=== PATIENT | female | born 1945 | race African-American/Black ===

== ENCOUNTER → 2016-07-10 15:30 | Outpatient (CLI) | payer BC ==
[2015-07-10 13:54] VITALS: BMI 31.2
[~2016-07-10 15:30] MED LIST: ASPIRIN325 MG PO; BACTROBAN NASAL1 GM NASAL; BUMEX 1 MG TAB1 MG PO; CELEBREX200 MG PO; COLACE100 MG PO; DULCOLAX10 MG/SUPP RC; DULERA 200 MCG8.8 GM INH; ELIQUIS2.5 MG PO; FERROUS SULFAT325 MG PO; FORTAMET500 MG/BOT PO; GLUCOSAMINE & C1 CAP PO; HUMALOG 30100 UNITS/; HUMALOG 30100 UNITS/ SC; HYDROCHLOROTHIA25 MG PO; HYDROCODONE-APA1 TAB PO; HYZAAR 100-25 T1 TAB PO; K-DUR20 MEQ PO; LODINE300 MG PO; LODINE400 MG PO; LOMOTIL TABLET1 TAB PO; MAG-OXIDE400 MG PO; MICRO-K10 MEQ PO; MILK OF MAGNESI30 ML PO; MIRALAX17 GM PO; MIRAPEX0.125 MG PO; NEURONTIN600 MG PO; NEURONTIN800 MG PO; NORCO 10/325 TA1 TA1 PO; NORVASC5 MG PO; ONDANSETRON4 MG/2 M3 IV; OXYCONTIN20 MG PO; PERCOCET 10/3251 TA1 PO; PERCOCET 5/3251 TA1 PO; PRILOSEC20 MG PO; PROTONIX40 MG PO; PROVENTIL HFA6.7 GM INH; ROBAXIN-750750 MG PO; SENOKOT-S TABLE1 TAB PO; SINGULAIR5 MG PO; SLOW-MAG 64 MG64 MG PO; SPIRIVA18 MCG INH; XARELTO10 MG PO
== END | disposition home or self-care (01) ==
LOC: D.LABREF 15:30
DX: M17.12 Unilateral primary osteoarthritis, left knee (principal); Z11.8 Encounter for screening for other infectious and parasitic diseases

== ENCOUNTER 2016-07-16 08:30 | Inpatient (IN) | payer BC ==
[~2016-07-16] VITALS: Ht 185.4 cm; Wt 103.9 kg
[~2016-07-16 08:30] MED LIST changes: -ELIQUIS2.5 MG PO
[2016-07-16 09:02] LABS: BASOPHILS 0.4 % (0.0-2.0); EOSINOPHILS 2.5 % (0-7); HEMATOCRIT 40.8 % (36.0-48.0); HEMOGLOBIN 13.3 g/dL (12-16); IMMATURE GRANULOCYTES 0.2 % (0-5); LYMPHOCYTES 20.2 % (15-50); MCH 30.8 pg (26.0-34.0); MCHC 32.6 g/dL (31.0-37.0); MCV 94.4 fL (80.0-100.0); MEAN PLATELET VOLUME 10.4 fL (7.4-10.4); MONOCYTES 9.2 % (2-11); NEUTROPHILS 67.5 % (40-80); PLATELET COUNT 188 10x3/uL (130-400); RBC 4.32 10x6/uL (4.00-5.40); RDW 14.1 % (11.5-14.5); WBC 5.2 10x3/uL (4.8-10.8)
[2016-07-16 09:07] LABS: APTT 27.2 SECONDS (22.8-39.4); INR 0.97 (0.85-1.17); PROTIME 12.7 SECONDS (11.6-15.0)
[2016-07-16 09:08] LABS: CALC OSMOLALITY 281 mosm/kg (275-300); CARBON DIOXIDE 32.9 mmol/L (21.0-32.0); CHLORIDE - SERUM 102 mmol/L (98-107); CREATININE - SERUM 0.8 mg/dL (0.6-1.3); GLUCOSE 105 mg/dL (74-106); POTASSIUM - SERUM 4.1 mmol/L (3.5-5.1); SODIUM 141 mmol/L (136-145); UREA NITROGEN 14 mg/dL (7-18); eGFR NON AFRICAN AMERICAN 75 mL/min (90-120)
[2016-07-16 09:50] LABS: APPEARANCE HAZY (CLEAR); BILIRUBIN NEGATIVE (NEGATIVE); COLOR DK YELLOW (YELLOW); EPITHELIAL CELLS 0-5 /hpf (0-5); GLUCOSE NEGATIVE (NEGATIVE); KETONE NEGATIVE (NEGATIVE); LEUKOCYTE ESTERASE TRACE (NEGATIVE); NITRITE NEGATIVE (NEGATIVE); PH 5.5 (5.0-6.0); PROTEIN NEGATIVE (NEGATIVE); RED CELLS - URINE OCC /hpf (0-5); SPECIFIC GRAVITY 1.015 (1.005-1.020); WHITE CELLS - URINE RARE /hpf (0-5)
[2016-07-16 09:51] LABS: BACTERIA FEW /hpf (NONE SEEN); MUCUS >1+ /lpf (NONE SEEN)
[2016-07-21] VITALS (11 sets, daily range): BP systolic 132–186; BP diastolic 68–103; BMI 30.4; BMI 30.2
--- NOTE | 2016-07-21 12:36 | NUR ---
LEFT LEG AND FOOT WASHED WITH HIBICLENS AND ALCOHOL PRIOR TO CHLORPREP PER DN
--- NOTE | 2016-07-21 14:51 | NUR ---
PT RECIEVED AT 1400 FROM PACU PER BED. LEFT KNEE WRAPPED FROM MID THIGH TO TOES=ABLE TO MOVE TOES FREELY AND ARE WARM. STATES CANNOT FEEL HER LEG. LUNGS CLEAR BILAT. OXYGEN AT 3LNC. CALL LIGHT IN REACH. BED ALARM FOR SAFETY. SCDS ON BILAT
--- NOTE | 2016-07-21 18:20 | NUR ---
PT PLACED IN CPM MACHINE WITH FRESH ICE BAG TO KNEE. TOLERATING WITHOUT COMPLAINTS AT THIS TIME. BED ALARM ON FOR SAFETY
--- NOTE | 2016-07-21 19:40 | NUR ---
RECIEVED SHIFT REPORT. PT IS LYING IN BED. ALERT AND ORIENTED AND ORIENTED AND ABLE TO VERBALIZE NEEDS. IV IS PATENT AND FLUIDS ARE RUNNING PER ORDER. CPM MACHINE ON. SCD'S ON. DRESSING TO LEFT KNEE C/D/I. O2 @ 2 PER NASAL CANNULA. PT DENIES ANY PAIN AT THIS TIME. NO NEEDS ARE VERBALIZED AT THIS TIME. WILL CONTINUE TO MONITOR. SIDE RAILS ARE UP X 2. BED IS IN LOWEST POSITION. BED ALARM IS ON FOR SAFETY. CALL LIGHT IS WITHIN REACH.
--- NOTE | 2016-07-21 23:08 | NUR ---
SHIFT ASSESSMENT COMPLETED. NIGHT MEDS GIVEN WITH NO PROBLEMS. PT REFUSES SCHEDULED BUMEX AT THIS TIME. NO FURTHER NEEDS VOICED. WILL MONITOR. SIDE RAILS X 2. BED LOW. BED ALARM ON. CALL LIGHT IN REACH.
[2016-07-22 05:00] VITALS: BP 120/66
[2016-07-22 05:46] LABS: BASOPHILS 0.1 % (0.0-2.0); EOSINOPHILS 2.6 % (0-7); HEMATOCRIT 32.1 % (36.0-48.0); LYMPHOCYTES 6.8 % (15-50); MCHC 31.2 g/dL (31.0-37.0); MCV 96.4 fL (80.0-100.0); MEAN PLATELET VOLUME 10.8 fL (7.4-10.4); NEUTROPHILS 79.5 % (40-80); PLATELET COUNT 158 10x3/uL (130-400); RBC 3.33 10x6/uL (4.00-5.40); RDW 14.2 % (11.5-14.5); WBC 6.9 10x3/uL (4.8-10.8)
[2016-07-22 06:02] LABS: CALC OSMOLALITY 278 mosm/kg (275-300); CALCIUM 8.6 mg/dL (8.5-10.1); CARBON DIOXIDE 30.8 mmol/L (21.0-32.0); CHLORIDE - SERUM 102 mmol/L (98-107); CREATININE - SERUM 0.8 mg/dL (0.6-1.3); GLUCOSE 103 mg/dL (74-106); POTASSIUM - SERUM 4.2 mmol/L (3.5-5.1); SODIUM 139 mmol/L (136-145); UREA NITROGEN 15 mg/dL (7-18); eGFR NON AFRICAN AMERICAN 75 mL/min (90-120)
[2016-07-22 08:11] VITALS: BP 143/69
--- NOTE | 2016-07-22 08:27 | NUR ---
PT SEEN AND ASSESSED. NO PAIN AT PRESENT-VERY MILD BUT GOOD. LEFT LEG WRAPPED FROM MID THIGH TO TOES. TOES WARM AND PINK AND ABLE TO MOVE FREELY. CURRENTLY IN CPM MACHINE. ICE TO KNEE. SCDS ON BILAT. CALL LIGHT IN REACH. BED ALARM FOR SAFETY
--- NOTE | 2016-07-22 12:08 | NUR ---
* Is the patient Alert and Oriented? Yes 0 * How many steps to enter\exit or inside your home? 2 0 * PCP Dr. Blankenship 0 * Pharmacy [facility] 0 * Preadmission Environment Home with Family 0 * ADLs Independent 0 * Equipment Bedside Commode Cane Rolling Walker Wheelchair 0 * List name and contact numbers for known caregivers / representatives who currently or will assist patient after discharge: Sister - Phyllis [phone] Niece - Howie [phone] 0 * Additional services required to return to the preadmission environment? Yes 0 * Can the patient safely return to the preadmission environment? Yes 0 * Has this patient been hospitalized within the prior 30 days at any hospital? No 07/22/2016 12:08 DCP: Discharge Planning Patient Name: GRIS LEONARDO Admission Status: Elective Accout number: [id number] Admission Date: 07-21-2016 : 1945 Admission Diagnosis: Attending: SYDNEY Current LOS: 1 Anticipated DC Date: 07-23-2016 Planned Disposition: Outpatient PT\OT Primary Insurance: [employer] Discharge Planning Comments: CM met with patient to assess dc plans/needs. Patient state she lives at home with her who is currently at [facility] for chcf/rehab. At vt, she states her niece, Howie, will be staying with her. She has a walker, cane, BSC & WC at home. She has chosen [facility] for outpatient physical therapy. Appt. scheduled 07/24 @ 1300. Anticipate dc tomorrow afternoon. CM will follow. Stave Bolt Equalizer: Jennifer Orozco
[2016-07-22 12:13] VITALS: BP 159/60
[2016-07-22 13:05] VITALS: Ht 185.4 cm; Wt 103.9 kg
[2016-07-22 15:59] VITALS: BP 121/60
--- NOTE | 2016-07-22 18:42 | NUR ---
PT HAS NO COMPLAINTS AT PRESENT. CURRENTLY IN CPM MACHINE AND TOLERATING WITHOUT COMPLAINTS. BED ALARM ON FOR SAFETY. CALL LIGHT IN REACH
[2016-07-22 19:00] VITALS: BP 104/76
--- NOTE | 2016-07-22 19:25 | NUR ---
RECIEVED SHIFT REPORT. PT IS LYING IN BED. ALERT AND ORIENTED AND ABLE TO VERBALIZE NEEDS. IV IS PATENT AND SALINE LOC AT THIS TIME. CPM ON. SCD'S ON. PT WAS UP WITH PHYSICAL THERAPY TODAY. PT STATES PAIN IS 10/10. NO NEEDS ARE VERBALIZED AT THIS TIME. WILL CONTINUE TO MONITOR. SIDE RAILS ARE UP X 2. BED IS IN LOWEST POSITION. BED ALARM IS ON FOR SAFETY. CALL LIGHT IS WITHIN REACH.
--- NOTE | 2016-07-22 20:05 | NUR ---
AID CAME TO HAVE ME GO IN PT ROOM AT THIS TIME. UPON ARRIVAL THE LEG IN THE CPM LOOKED SIDEWAYS IF IT HAD SLIPPED. THERE WAS A MODERATE AMOUNT OF BLOOD ON PINK BED PAD AND BED. TOOK TAYLER WRAP OFF TO INSPECT AND IT APPEARS TO BE THE INSIDE OF THE AQUACEL IS SATURATED WITH BLOOD AND IT HAS OOZED OUT AROUND THE TOP SEAL. WILL GET NEW DRESSING AND APPLY. CPM MACHINE REMOVED.
--- NOTE | 2016-07-22 20:38 | NUR ---
SHIFT ASSESSMENT COMPLETED. NIGHT MEDS GIVEN WITH NO PROBLEMS. PT REFUSED SCHEDULED BUMEX AT THIS TIME. OLD AQUACEL REMOVED AND ALL GARETH ARE INTACT AND THERE IS SCANT BLOOD COMING OUT OF INCISION. AQUACEL DRESSING IS INDEED SAURATED WITH BLOOD. AREA CLEANED UP AND NEW AQUACEL APPLIED WITH 4X4'S ON TOP AND NEW TAYLER WRAPS. PT TOLERATED WELL. WILL MONITOR. SIDE RAILS X 2. BED LOW. BED ALARM ON. CALL LIGHT IN REACH.
[2016-07-23 05:18] LABS: HEMATOCRIT 31.5 % (36.0-48.0); HEMOGLOBIN 9.8 g/dL (12-16); MCH 29.8 pg (26.0-34.0); MCHC 31.1 g/dL (31.0-37.0); MCV 95.7 fL (80.0-100.0); MEAN PLATELET VOLUME 10.8 fL (7.4-10.4); RBC 3.29 10x6/uL (4.00-5.40); RDW 14.2 % (11.5-14.5); WBC 6.6 10x3/uL (4.8-10.8)
--- NOTE | 2016-07-23 06:47 | CN ---
PATIENT NAME:GRIS LEONARDO MEDICAL RECORD: [id number] : 43 LOCATION:D.[facility] ADMIT DATE: 07/21/16 ACCOUNT: [id number] CONSULTING PHYSICIAN: GARCIA MILLAN MD REFERRING PHYSICIAN: DAPHNE FOUNTAIN MD DATE OF CONSULTATION: 07/21/2016 Consultation note DATE OF ADMISSION: 07/21/2016. REASON FOR CONSULTATION: Medical management. HISTORY OF PRESENT ILLNESS: The patient is a 70-year-old female with end-stage DJD of the knees. The patient had been referred to Dr. Fountain who had suggested the patient to undergo a total left knee replacement. PAST MEDICAL HISTORY: Significant that she has had bilateral hip replacement. She has had thyroid nodule, borderline diabetes mellitus, and carpal tunnel syndrome. She has also had a hysterectomy, right hip fracture, arthritis, hypertension, low back pain, and dependent edema. She has had a history of anemia. MEDICATIONS: Include aspirin 325 mg once a day, Bumex 1 mg 1 p.o. every day, Dulera 200/5 mcg 2 puffs every day, Lodine ER 400 mg 2 tablets once a day, ferrous sulfate 325 one p.o. b.i.d., gabapentin 600 mg 2 tabs p.o. t.i.d., hydrochlorothiazide 25 one p.o. every day, KCl 20 mEq b.i.d., losartan 100 mg once a day, Magnesium oxide 400 mg twice a day, Metformin 500 mg twice a day, Protonix 40 mg once a day, Mirapex 0.0125 one p.o. every day, Proventil HFA 90 mcg 2 puffs q.4 hours p.r.n. shortness of breath, and Spiriva with HandiHaler b.i.d. ALLERGIES: CODEINE AND PENICILLIN. SOCIAL HISTORY: She was born in [place] and moved to [place] in 1965. She has worked for over 30+ years. Educated through the 12th grade. She is and has no children. HABITS: None. REVIEW OF SYSTEMS: CONSTITUTIONAL: She denies any headaches, seizure or syncope. She denies change in visual or auditory acuity. PULMONARY: She denies any shortness of breath, cough, congestion, history of asthma or bronchitis. CARDIOVASCULAR: She has had no chest pain or palpitation, PND, or orthopnea. GASTROINTESTINAL: No chronic nausea, vomiting, melena, hematochezia, urgency, frequency or dysuria mucosa. MUSCULOSKELETAL: The patient does report having pain bilaterally in both knees at the current time. She has an epidural in place. She is experiencing no pain. PHYSICAL EXAMINATION: GENERAL: She is alert. She is oriented times 3. VITAL SIGNS: Her temperature is 97, blood pressure 140/77, pulse 71, CONSULT REPORT [id number] GRIS LEONARDO DONNA respirations 18. HEENT: Head is normocephalic. No lesions. Ears: TMs clear. Eyes: Pupils equal, round and reactive to light. Her extraocular movements are intact. Her nasal cavity, oral cavity and oropharynx clear. NECK: Supple. There is no adenopathy. HEART: Has regular rhythm. No murmurs, gallops or rubs. LUNGS: Clear. ABDOMEN: Soft, bowel sounds positive. No organomegaly. GENITAL AND RECTAL: Deferred. EXTREMITIES: The patient is status post total left knee replacement. She has pressure dressing in place. No active bleeding is noted. She has 2+ dorsalis pedis, posterior tibial pulses. LABORATORY DATA: Preoperatively on the , the patient's white count was 5.2, hemoglobin 13.3, hematocrit 40.8 and her platelets were 188. She had sodium of 141, potassium 4.1, chloride 102, CO2 was 32.9. BUN is 14, creatinine 0.8. The patient had a urinalysis, which was unremarkable. She also had an INR of 0.97. ASSESSMENT: Status post total left knee replacement, history of bilateral hip replacement, history of hypertension, diabetes mellitus, history of asthma, and anemia. PLAN: We will follow the patient along with you and continue all her current medications. Repeat CBC as well as BMP in a.m. TRANSINT:[id number] Voice Confirmation ID: [id number] DOCUMENT ID: [id number] GARCIA MILLAN MD at 0647 CC: [id number] DICTATION DATE: 07/21/161730 MANAGER INSTALLATION: 07/21/162046 [place] [address]
--- NOTE | 2016-07-23 07:00 | NUR ---
REPORT RECIEVED ASSUMED CARE. PATIENT IN BED WITH NO COMPLAINTS AT THIS TIME. IV INTACT. CPM ON. CALL LIGHT WITHIN REACH.
[2016-07-23 07:59] VITALS: BP 147/76
[2016-07-23] MEDS ORDERED: ELIQUIS2.5 MG PO (08:13)
[2016-07-23] MEDS ORDERED: PERCOCET 10/3251 TA1 PO (08:14)
--- NOTE | 2016-07-23 08:25 | OP ---
PATIENT NAME: GRIS LEONARDO MEDICAL RECORD: [id number] :[birth year] LOCATION:D.[facility] ADMISSION DATE:07/21/16 SURGEON: DAPHNE FOUNTAIN MD DATE OF OPERATION: 07/21/2016 PREOPERATIVE DIAGNOSIS: Left knee degenerative joint disease. POSTOPERATIVE DIAGNOSIS: Left knee degenerative joint disease. PROCEDURE PERFORMED: Left knee replacement using Biomet with a posterior stabilized system. SURGEON: Manoj Fountain MD ANESTHESIA: General with a block for postop pain. CONDITION: She tolerated the procedure well, was transferred to the recovery room in stable condition at termination of procedure. TOURNIQUET TIME: 48 minutes. ESTIMATED BLOOD LOSS: Minimal. INDICATIONS: This is a very pleasant 70-year-old female with advanced degenerative changes of her knee. This has been going on for some time. She presents for a total knee replacement. We did discuss risks, benefits, alternatives of this. She understood and wished to proceed. OPERATIVE REPORT: The patient was taken to the operating room, placed in a supine position. General anesthesia was obtained. She did have the block placed in the preop holding area. In the operating room, she was prepped and draped in the normal fashion. Following which, she had a secondary ChloraPrep and Ioban dressing placement. She then had exsanguination with an Jalen wrap and elevation of the tourniquet to 350. She had midline incision followed by a medial parapatellar incision. This was followed by everting the patella, taking out the fat pad and elevating some soft tissue medially. I then proceeded to drill into the femur, placed a guide, and made a distal femoral cut. The femur was measured at a 67.5. I did do the rest of the distal femoral cuts for a 67.5. Following which, I made a box cut for posterior stabilized knee. I then subluxed the tibia forward, placed the tibial guide and made a proximal tibial cut. This was sized at a 75. Therefore, I placed a 67.5 femur with a 75 tibia marked rotation. Following which, I punch for the tibia. I also took off the back side of the patella, which was significantly deformed. I then flattened up the patella, measured this for a 34, drilled the 3 peg holes and then trialed all 3 components, they fit well. I therefore took everything out, copiously irrigated then cemented into place a 67.5 posterior stabilized knee with a 75 tibia and a 34 three-peg hole patellar button. I then proceeded to place a 12 poly while the cement dried. Once this was accomplished, it felt like a 14 would still work, so I placed the final 14 poly. She was copiously irrigated, then closed with the #1 barbed PDS then with 2-0 Vicryl, then pieter, awakened and transferred to the recovery room in stable condition, having tolerated procedure well. TRANSINT:[id number] Voice Confirmation ID: [id number] DOCUMENT ID: [id number] OPERATIVE REPORT [id number] GRIS LEONARDO, DAPHNE GANDHI MD at 0825 CC: [id number] DICTATION DATE: 07/21/16 1436 BISCUIT PACKER: 07/21/16 1456 ADM IN [facility] [address] [id number]
--- NOTE | 2016-07-23 08:45 | NUR ---
PATIENT UP WITH PT. NO PROBLEMS AT THIS TIME.
--- NOTE | 2016-07-23 13:30 | NUR ---
PATIENT RECIEVED DISCHARGE INSTRUCTIONS. VERBALIZED UNDERSTANDING. DRESSING CLEAN AND DRY. CHANGED LAST NIGHT. WILL GO HOME WITH THAT DRESSING ON. IV REMOVED WITH CATH TIP INTACT. PRESCRIPTION GIVEN TO PATIENT.
--- NOTE | 2016-07-23 13:30 | NUR ---
07/23/2016 13:29 DCP: Discharge Planning Patient Name: GRIS LEONARDO Encounter No: [id number] : 1945 Primary Insurance: BLUE CROSS TRUE BLUE PPO Anticipated DC Date: 07-23-2016 Planned Disposition: Outpatient PT\OT External Planned Provider: [facility] DCP follow-up note: DC order rec'd. Patient and family in agreement with discharge plan. No changes to plan. Jennifer Orozco
--- NOTE | 2016-07-29 07:00 | DS ---
PATIENT:GRIS LEONARDO :[birth year] MEDICAL RECORD: [id number] DISCHARGE SUMMARY ADMISSION DATE: 07/21/16 DISCHARGE DATE: 07/23/16 DATE OF ADMISSION: 07/21/2016. DATE OF DISCHARGE: 07/23/2016. ADMITTING DIAGNOSIS: Left knee degenerative joint disease. DISCHARGE DIAGNOSIS: Left knee degenerative joint disease. PROCEDURE PERFORMED DURING THE HOSPITALIZATION: A left total knee arthroplasty. HISTORY OF PRESENT ILLNESS: A very pleasant 70-year-old female with advanced degenerative changes of her left knee. She is no longer tolerating nonoperative treatments. She presented for a knee replacement. She has done quite well postoperatively. It is felt that she can be discharged to home and continue outpatient physical therapy. She is going to continue on post-total knee arthroplasty protocols. She is going to be taking Eliquis and Percocet for pain. She is to keep it clean and dry. She is going to see me back in about 2 weeks. She is going to call if she is having any problems and we will proceed from this juncture. DISCHARGE DIAGNOSES: 1. Left knee degenerative joint disease. 2. Postop acute blood loss anemia. TRANSINT:[id number] Voice Confirmation ID: [id number] DOCUMENT ID: [id number] DAPHNE FAITH MD at 0700 CC: [id number] DICTATION DATE: 07/23/16821 INSOLE DOUBLER: 07/23/16 0853 DIS IN 07/23/[id number] [place] [address]
== END 2016-07-23 15:02 | disposition home or self-care (01) | DRG 470 ==
LOC: D.SDCHOLD 07-21 06:09 → D.MS 07-21 06:09 → D.SDCHOLD 07-21 08:30 → D.MS 07-21 13:21
PROVIDERS: Family Medicine; ADMIT Orthopaedic Surgery Sports Medicine
PROC: 0SRD0J9 Replacement of Left Knee Joint with Synthetic Substitute, Cemented, Open Approach (ICD-10-PCS; principal; 2016-07-21 11:15)
DX: M17.12 Unilateral primary osteoarthritis, left knee (principal); D62 Acute posthemorrhagic anemia; E11.40 Type 2 diabetes mellitus with diabetic neuropathy, unspecified; Z79.84 Long term (current) use of oral hypoglycemic drugs; I10 Essential (primary) hypertension; J44.9 Chronic obstructive pulmonary disease, unspecified; J45.909 Unspecified asthma, uncomplicated; Z96.643 Presence of artificial hip joint, bilateral

== ENCOUNTER → 2016-10-26 19:01 | Outpatient (CLI) | payer BC ==
[2016-07-22 13:05] VITALS: BMI 30.2
[~2016-10-26 19:01] MED LIST changes: +ELIQUIS2.5 MG PO
[2016-10-26 19:33] LABS: HEMOGLOBIN A1C 6.3 % (4.8-6.0)
== END | disposition home or self-care (01) ==
LOC: D.LABREF 19:01
PROVIDERS: Orthopaedic Surgery Sports Medicine
DX: M17.11 Unilateral primary osteoarthritis, right knee (principal); Z11.8 Encounter for screening for other infectious and parasitic diseases

== ENCOUNTER 2016-11-24 06:45 | Inpatient (IN) | payer BC, MEDICARE ==
[2016-11-20 15:42] LABS: BASOPHILS 0.2 % (0-2); EOSINOPHILS 4.1 % (0-7); HEMATOCRIT 40.3 % (36.0-48.0); HEMOGLOBIN 12.7 g/dL (12-16); IMMATURE GRANULOCYTES 0.2 % (0-5); LYMPHOCYTES 21.9 % (15-50); MCH 29.4 pg (26.0-34.0); MCHC 31.5 g/dL (31.0-37.0); MCV 93.3 fL (80.0-100.0); MONOCYTES 9.9 % (2-11); NEUTROPHILS 63.7 % (40-80); RBC 4.32 10x6/uL (4.00-5.40); RDW 14.9 % (11.5-14.5); WBC 4.7 10x3/uL (4.8-10.8)
[2016-11-20 15:46] LABS: PLATELET COUNT 205 10x3/uL (130-400)
[2016-11-20 15:55] LABS: INR 0.94 (0.85-1.17); PROTIME 12.4 SECONDS (11.6-15.0)
[2016-11-20 15:57] LABS: ANION GAP 11.4 mmol/L (8-16); CALCIUM 9.9 mg/dL (8.5-10.1); CARBON DIOXIDE 30.7 mmol/L (21.0-32.0); CREATININE - SERUM 0.9 mg/dL (0.6-1.3); POTASSIUM - SERUM 4.1 mmol/L (3.5-5.1)
[2016-11-20 16:43] LABS: APPEARANCE CLEAR (CLEAR); BILIRUBIN NEGATIVE (NEGATIVE); COLOR YELLOW (YELLOW); GLUCOSE NEGATIVE (NEGATIVE); KETONE NEGATIVE (NEGATIVE); LEUKOCYTE ESTERASE NEGATIVE (NEGATIVE); NITRITE NEGATIVE (NEGATIVE); PROTEIN NEGATIVE (NEGATIVE); UROBILINOGEN NORMAL (NORMAL)
[2016-11-24] VITALS (9 sets, daily range): BP systolic 155–200; BP diastolic 65–97; BMI 30.4; BMI 28.4
[~2016-11-24] VITALS: Ht 185.4 cm; Wt 97.5 kg
[~2016-11-24 06:45] MED LIST changes: +BAYER CHEWABLE81 MG PO
[2016-11-24] MEDS ORDERED: COZAAR25 MG PO (07:32)
[2016-11-24] MEDS ORDERED: HYDROCODONE-APA1 TAB PO (07:34)
[2016-11-24] MEDS ORDERED: ZYRTEC10 MG PO (07:35)
[2016-11-24] MEDS ORDERED: MULTIPLE VITAMI1 TA1 PO (07:35)
--- NOTE | 2016-11-24 13:57 | NUR ---
PT REPORT REC'D FROM SARANYA ALLEN, IN RECOVERY. ROOM READY AND AWAITING PT ARRIVAL.
--- NOTE | 2016-11-24 14:00 | NUR ---
PT AOX4 RESP EVEN AND NONLABORED PT HERE FOR RIGHT KNEE SURGERY. PT DENIES NEEDS AT THIS TIME IV TO LEFT WRIST PATENT AND INTACT SRX2 BED AT LOWEST SETTING CALL LIGHT WITHIN REACH WILL CONTINUE TO MONITOR. PT HERE FOR IV ANTIBIOTICS AND PT
--- NOTE | 2016-11-24 14:22 | NUR ---
PT REC'D TO ROOM VIA BED. AAOX4. FAMILY AT BEDSIDE. DRESSING TO R KNEE CDI. +2 PEDAL PULSES BILAT. VSS. ADMISSION ASSESSMENT COMPLETE. PIV TO L WRIST FREE OF REDNESS AND SWELLING. IVF HUNG PER AUG. BED LOW, CALL LIGHT IN REACH, DENIES NEEDS. CPOC.
--- NOTE | 2016-11-24 15:24 | NUR ---
ASSISTED PT ONTO BED MANDEL. LARGE AMOUNT OF CLEAR YELLOW URINE VOIDED AT THIS TIME. REPOSITIONED UP IN BED. BED LOWERED, DENIES NEEDS, CPOC.
--- NOTE | 2016-11-24 18:25 | NUR ---
ASSISTED PT ONTO BED MANDEL. VOIDED LARGE AMOUNT OF CLEAR YELLOW URINE. [facility] PROVIDED. CPM ON AT THIS TIME.
--- NOTE | 2016-11-24 20:56 | NUR ---
PATIENT RESTING IN BED AND DENIES NEEDS AT THIS TIME. BED IN LOWEST POSITION AND CALL LIGHT WITHIN REACH. ENCOURAGED THE PATIENT TO CALL IF SHE HAS NEEDS.
--- NOTE | 2016-11-24 21:50 | NUR ---
REPOSITIONED PATIENT WITH NORMAN YOUNG. PATIENT REQUESTED SOMETHING TO HELP HER SLEEP. I PAGED DR. VALADEZ (APPIAN DEVELOPER FOR DR. PAZ) AND HE ORDERED ATIVAN 1MG IV Q2HPRN. ADMINISTERED MEDICATION PER ORDERS. PATIENT DENIES OTHER NEEDS AT THIS TIME. BED IS IN THE LOWEST POSITION, CALL LIGHT WITHIN REACH, AND BED ALARM IS ON. ENCOURAGED THE PATIENT TO CALL IF SHE HAS FURTHER NEEDS.
--- NOTE | 2016-11-24 22:56 | NUR ---
ADMINISTERED BOLUS DOSE FOR 8/10 PAIN.
[2016-11-25 04:00] VITALS: BP 178/77
[2016-11-25 05:22] LABS: HEMATOCRIT 37.2 % (36.0-48.0); HEMOGLOBIN 11.8 g/dL (12-16); MCH 29.5 pg (26.0-34.0); MCHC 31.7 g/dL (31.0-37.0); MEAN PLATELET VOLUME 10.2 fL (7.4-10.4); RDW 14.8 % (11.5-14.5); WBC 8.7 10x3/uL (4.8-10.8)
[2016-11-25 08:06] VITALS: BP 181/81
--- NOTE | 2016-11-25 08:09 | NUR ---
PT REC'D FROM SARANYA MUHAMMAD. RESTING IN BED WITH CPM TO R LEG. DRESSING TO R KNEE CDI. RATING CURRENT PAIN IN R KNEE 03/07. REMINDED PT OF ON SITE COORDINATOR AND HOW TO USE. ASSISTED PT ONTO BED MANDEL. VOIDED SMALL AMOUNT OF CLEAR YELLOW URINE. BED LOW, CALL LIGHT IN REACH, BREAKFAST TRAY AT BEDSIDE. CPOC.
--- NOTE | 2016-11-25 08:21 | NUR ---
PT RESTING IN BED WITH HOB AT 30DEGREES, CPM IN USE. PT COMPLAINS OF PAIN OF A 9 ON A SCALE OF 1-10, IT BUSINESS SYSTEMS ANALYST IN USE, STATES PAIN IS AT A TOLERABLE LEVEL. CPM FUNCTIONING PROPERLY. BED IN LOW POSITION AND CALL LIGHT WITHIN REACH. WILL CONTINUE TO MONITOR.
--- NOTE | 2016-11-25 10:24 | NUR ---
Patient Name: GRIS LEONARDO Admission Status: Elective Accout number: [id number] Admission Date: 11-24-2016 : 1945 Admission Diagnosis: Attending: KEILA Current LOS: 1 Anticipated DC Date: Planned Disposition: Home Primary Insurance: BLUE CROSS TRUE BLUE PPO Discharge Planning Comments: CM NOTE: CM met with patient to assess discharge planning/needs. Patient lives home alone but has multiple family members who live across the street. She states that she has a walker, bed side commode and elevated toilet seat at home. One of her family members will be driving her home. She denies any steps or stairs in her home and says her home is safe to return to. Patient states she plans to go to [facility] where she has gone in the past. She was very happy with them and would like to use them again. Called [facility] medical to verify the patient was set up with supplies and stated that they would deliver the CPM machine to house once she is discharged. CM will continue to follow and assist as needed with discharge planning/needs. PCP: Monty Pharmacy: [facility] ([place]) [phone] [place] ([place]) [phone] DME: [facility] mfts: Viky Elliott * Is the patient Alert and Oriented? Yes 0 * How many steps to enter\exit or inside your home? 0 0 * PCP [facility] 0 * [facility] * Preadmission Environment Home Alone 0 * ADLs Independent 0 * Equipment Bedside Commode Elevated [place] Seat Walker 0 * List name and contact numbers for known caregivers / representatives who currently or will assist patient after discharge: [place] () [place] ([place]) 0 * Community resources currently utilized Other 0 * Please name any agencies selected above. [facility] 0 * Additional services required to return to the preadmission environment? Yes 0 * Can the patient safely return to the preadmission environment? Yes 0 * Has this patient been hospitalized within the prior 30 days at any hospital? No 0 Grand Total: 0
[2016-11-25 12:48] VITALS: BP 169/82
[2016-11-25 14:04] VITALS: Ht 185.4 cm; Wt 97.5 kg
[2016-11-25 16:02] VITALS: BP 187/77
--- NOTE | 2016-11-25 16:39 | NUR ---
IV RESITED BY SARANYA BECK. DILAUDGIA FORM SETTER SUPERVISOR DC'D. EXPLAINED TO PT THAT SHE HAS PO PAIN MEDICATION THAT SHE CAN TAKE IF SHE NEEDS IT. PT STATES SHE UNDERSTANDS AND HAS NO QUESTIONS. BED LOW, CALL LIGHT IN REACH, VISITORS AT BEDSIDE, DENIES NEEDS. CPOC.
--- NOTE | 2016-11-25 19:36 | NUR ---
PATIENT RESTING IN BED AND DENIES NEEDS AT THIS TIME. BED IN LOWEST POSITION, CALL LIGHT WITHIN REACH, AND BED ALARM ON. ENCOURAGED THE PATIENT TO CALL IF SHE HAS FURTHER NEEDS.
[2016-11-25 20:00] VITALS: BP 149/85
[2016-11-26] VITALS: BP 176/86
[2016-11-26 04:00] VITALS: BP 162/80
[2016-11-26] MEDS ORDERED: HYDROCODONE-APA1 TAB PO (05:52)
[2016-11-26] MEDS ORDERED: ELIQUIS2.5 MG PO (05:52)
--- NOTE | 2016-11-26 06:33 | OP ---
PATIENT NAME: GRIS LEONARDO MEDICAL RECORD: [id number] :43 LOCATION:D.[facility] ADMISSION DATE:11/24/16 SURGEON: GARCIA GOOD MD DATE OF OPERATION: 11/24/2016 PREOPERATIVE DIAGNOSIS: Severe degenerative arthritis of the right knee. POSTOPERATIVE DIAGNOSIS: Severe degenerative arthritis of the right knee. PROCEDURE: Right total knee arthroplasty. SURGEON: Garcia Good MD. ANESTHESIA: General. INTRAOPERATIVE COMPLICATIONS: None. SUMMARY OF PATHOLOGIC FINDINGS: Severe tricompartmental extensive osteoarthritis. IMPLANTS USED: Pipo triathlon total knee arthroplasty size 5 distal femur, size 13 polyethylene insert, size 5 tibial baseplate and size 31 patellar component. OPERATIVE SUMMARY IN DETAIL: After obtaining the appropriate preoperative orthopedic surgery consent as well as anesthetic consultation, evaluation and clearance, the patient was brought to the operating room and placed on the operating room table in supine position. After adequate general laryngeal mask was administered, tourniquet was placed about the proximal aspect of the right lower extremity. Right lower extremity was then prepped and draped in a routine sterile fashion. Leg was elevated, exsanguinated and tourniquet inflated to 350 mmHg. Routine midline incision was taken down for paramedian arthrotomy. Patella was everted, distal femur was exposed. Soft tissue excision was done in the usual fashion. Intramedullary guide hole was created for intramedullary guided distal femoral cut. This was followed by complete dissection about the proximal tibia. Proximal tibial guide hole was created likewise and the proximal tibial intramedullary guided cut was made. Measurements were taken. Distal femoral chamfer cuts were made. Copious osteophytes had to be removed at this point from both the patella, femur, as well as around the tibia. Trial components were put into place and taken through range of motion that was corresponding to the ____ and thought to be the most appropriate. The ____ arthritic surface of the patella was resected for patellar ____. The knee at this point was copiously irrigated and all small debris was removed. Bone ends were dried. The components were cemented into place. Excess cement was removed and after it was allowed to harden, it was taken through range of motion and found to be stable in all planes. Paramedian arthrotomy was then closed with #2 Ethibond followed by #1 Vicryl followed by skin pieter. Sterile dressings were applied. Tourniquet was deflated. The patient was awakened, taken to recovery room in stable condition. All final needle and sponge counts were correct. TRANSINT:[id number] Voice Confirmation ID: [id number] DOCUMENT ID: [id number] OPERATIVE REPORT [id number] GRIS LEONARDO MD, GARCIA KLEIN at 0633 CC: [id number] DICTATION DATE: 11/24/16 1305 MASTER BARBER: 11/24/16 1650 ADM IN [id number] [id number]
[2016-11-26 06:53] LABS: HEMOGLOBIN 11.6 g/dL (12-16); MCH 30.1 pg (26.0-34.0); MCHC 33.1 g/dL (31.0-37.0); MEAN PLATELET VOLUME 11.2 fL (7.4-10.4); RBC 3.85 10x6/uL (4.00-5.40); RDW 14.6 % (11.5-14.5)
[2016-11-26 07:08] LABS: WBC 11.9 10x3/uL (4.8-10.8)
[2016-11-26 07:09] LABS: MCV 90.9 fL (80.0-100.0)
[2016-11-26 07:53] VITALS: BP 168/79
--- NOTE | 2016-11-26 08:44 | NUR ---
11/26/2016 8:41 DCP: Discharge Planning DC order rec'd. Patient has discussed outpatient physical therapy with MD and patient will not begin therapy at [facility] until after her hospital follow up appointment with Dr. Luz. CM discussed with Dr. Luz - his office with schedule appointment at follow up. Spoke with Nita at [facility] - CPM will be delivered this afternoon to the home. No other needs identified or verbalized at this time. CM will follow.
--- NOTE | 2016-11-26 09:47 | NUR ---
PATIENT RATED PAIN AN 8/10, APPLIED 2 ICE PACKS TO RIGHT KNEE. PATIENT SITTING UP IN THE CHAIR. NO SIGNS OF DISTRESS NOTED.
--- NOTE | 2016-11-26 12:33 | NUR ---
PATIENT IS SITTING UP IN THE CHAIR EATING LUNCH. PATIENT DENIES NEEDS. CALL LIGHT IN REACH.
--- NOTE | 2016-11-26 13:05 | NUR ---
DRESSING TO RIGHT KNEE SATURATED WITH OLD BLOOD. TOOK OFF DRESSING. CLEANED WITH STERILE WOUND GOVERNOR ASSEMBLER HYDRAULIC AND STERILE GAUZE, DID NOT TOUCH INCISION SITE EXCEPT WITH STERILE GAUZE. APPLIED NEW AQUACEL AG DRESSING. WROTE THE DATE ON THE DRESSING EXPLAINED TO PATIENT TO KEEP DRESSING ON FOR 7 DAYS THEN REMOVE. PATIENT VERBALIZED UNDERSTANDING. D/C IV WITH CATHETER INTACT.
--- NOTE | 2016-11-26 13:19 | NUR ---
PATIENT AMBULATING WITH PHYSICAL THERAPY
--- NOTE | 2016-11-26 14:13 | NUR ---
PATIENT STATED SHE HAS CALLED HER RIDE. PATIENT REQUESTED TO WAIT ON DISCHARGE INSTRUCTIONS UNTIL FAMILY PRESENT. TOLD PATIENT TO PUSH HER CALL LIGHT WHEN HER FAMILY ARRIVES. PATIENT VERBALIZED UNDERSTANDING.
--- NOTE | 2016-11-26 15:08 | NUR ---
DISCHARGE INSTRUCTIONS COMPLETED WITH PATIENT AND PATIENT'S NIECE. PATIENT AND NIECE BOTH VERBALIZED UNDERSTANDING AND DENY QUESTIONS.
--- NOTE | 2016-11-26 15:09 | NUR ---
PATIENT LEFT VIA WHEELCHAIR WITH VOLUNTEER AND NIECE.
== END 2016-11-26 15:09 | disposition home or self-care (01) | DRG 470 ==
LOC: D.MS 06:45 → D.SDCHOLD 06:45 → D.MS 13:02
PROVIDERS: Anesthesiology; ADMIT Orthopaedic Surgery
PROC: 0SRC0J9 Replacement of Right Knee Joint with Synthetic Substitute, Cemented, Open Approach (ICD-10-PCS; principal; 2016-11-24 09:00)
DX: M17.11 Unilateral primary osteoarthritis, right knee (principal); E11.40 Type 2 diabetes mellitus with diabetic neuropathy, unspecified; I10 Essential (primary) hypertension; J44.9 Chronic obstructive pulmonary disease, unspecified; M25.761 Osteophyte, right knee

== ENCOUNTER → 2018-09-27 16:34 | Outpatient (CLI) | payer MEDICARE ==
[2016-11-25 14:04] VITALS: BMI 28.3
[~2018-09-27 16:34] MED LIST changes: +COZAAR25 MG PO; +MULTIPLE VITAMI1 TA1 PO; +ZYRTEC10 MG PO
== END | disposition home or self-care (01) ==
LOC: D.MAMMO 08:15
PROVIDERS: ATTEND Family Medicine
DX: Z12.31 Encounter for screening mammogram for malignant neoplasm of breast (principal)

== ENCOUNTER → 2018-10-27 16:30 | Outpatient (CLI) | payer MEDICARE ==
[2016-11-25 14:04] VITALS: BMI 28.3
== END | disposition home or self-care (01) ==
LOC: D.MAMMO 10-24 14:00 → D.US 10-24 15:00 → D.MAMMO 09:30
PROVIDERS: ATTEND Family Medicine
DX: R92.8 Other abnormal and inconclusive findings on diagnostic imaging of breast (principal)

== ENCOUNTER 2019-11-15 09:00 | Outpatient (CLI) | payer MEDICARE, OTHER ==
[2016-11-25 14:04] VITALS: BMI 28.3
== END 2019-11-15 10:00 | disposition home or self-care (01) ==
LOC: D.MAMMO 09:00
PROVIDERS: ATTEND Nurse Practitioner
DX: Z12.31 Encounter for screening mammogram for malignant neoplasm of breast (principal)

== ENCOUNTER 2020-04-09 11:37 | Day surgery (SDC) | payer MEDICARE, OTHER ==
[~2020-04-09] VITALS: Ht 185.4 cm; Wt 103.6 kg
--- NOTE | ~2020-04-09 | HEMODYNAMI ---
PATIENT:GRIS LEONARDO MEDICAL RECORD: [id number] : 43 LOCATION:D.CAT ADMISSION DATE: 04/09/20 Generatedon:04/09/202015:31 Patient name: GRIS LEONARDO Patient #: [id number] SSN: : 1945 Date of study: 04/09/2020 Page: Of Hemodynamic Procedure Report Patient Data Patient Demographics Procedure consent was obtained First Name: GRIS Gender: Female Last Name: MALISSA : 1945 Middle Initial: DONNA Age: 74 year(s) Patient #: [id number] Race: Black Additional ID: [id number] Contact details Address: [address] [place] [address] State: [place] City: [facility] Zip code: [address] Past Medical History Allergies Allergen Reaction Date Comments Reported Other allergy 04/09/2020 PCNTERI Admission Admission Data Admission Date: 04/09/2020 Admission Time: 11:37 Arrival Date: 04/09/2020 Arrival Time: 0:00 Admit Source: Other Insurance Payor: Medicare [facility] #: [id number] Height (in.): 73 BSA: 2.28 (m2) Height (cm.): 185.42 BMI: 30.14 (kg/m2) Weight (lbs.): 228.47 Weight (kg.): 103.63 Lab Results Lab Result Date: 04/09/2020 Lab Result Time: 0:00 Biochemistry Name Units Result Min Max BUN mg/dl 25 --(----)-* 7 18 Creatinine mg/dl 0.8 --(-*--)-- 0.6 1.3 eGFR ml/min 73.21766 *-(----)-- 90 120 NONAFRICAN CBC Name Units Result Min Max Hematocrit % 42.8 --(*---)-- 42 54 Hemoglobin g/dl 14 --(*---)-- 13.5 17.5 Procedure Procedure Types Cath Procedure Diagnostic Procedure PPM/ICD PPM Dual Implant Sedation Charges Moderate Sedation up to 45 minutes Procedure Description Procedure Date Procedure Date: 04/09/2020 Procedure Start Time: 14:31 Procedure End Time: 15:15 Procedure Staff Name Function Keeley Jerad RT Scrub Janey Moon RN Nurse Daniel Vasquez MD Assisting physician Bertrand Guidry MD Performing Physician Denisse Watson RT Monitor Procedure Data Cath Procedure Fluoroscopy Diagnostic fluoroscopy Total fluoroscopy Time: 9.1 time: 9.1 min min Diagnostic fluoroscopy Total fluoroscopy dose: dose: 244.77 mGy 244.77 mGy Estimated blood loss: 10 ml Procedure Complications No complications Procedure Medications Medication Administration Route Dosage Oxygen etCO2 Nasal cannula 2 l/min Lidocaine 1% added to field 20 Vancomycin I.V.P.B 1 g Vancomycin Topical 1 g Irrigation Versed I.V. 2 mg Fentanyl I.V. 100 mcg 0.9% NaCl I.V. Fentanyl I.V. 50 mcg Oxygen 6 l/min Versed I.V. 1 mg Fentanyl I.V. 50 mcg Hemodynamics Rest BSA: 2.28 (m2) HGB: 14 (g/dl) O2 Consumption: Estimated: 185.45 (ml/min) O2 Cons umption indexed: Estimated:81.34 (ml/min/m) Heart Rate: 44 (bpm) Snapshots Pre Cath Intra NCS Post Cath Vital Signs Time Heart Resp SPO2 etCO2 NIBP (mmHg) Rhythm Pain Sedation Rate (ipm) (%) (mmHg) Status Level (bpm) 14:24:36 58 24 92 0 201/96(155) NSR (Missing) 10(A) 14:29:04 54 27 92 30.1 158/78(129) NSR (Missing) 10(A) 14:33:28 62 16 93 0 160/79(138) NSR (Missing) 10(A) 14:37:45 63 15 96 0 151/81(136) NSR (Missing) 9(A) 14:43:00 55 10 98 0 149/74(122) NSR (Missing) 9(A) 14:48:12 114 13 100 23.3 161/89(155) NSR (Missing) 10(A) 14:52:25 51 17 100 0 141/75(116) NSR (Missing) 9(A) 14:56:38 55 11 96 0.7 125/65(104) NSR (Missing) 9(A) 15:00:53 99 11 96 20.3 127/64(106) NSR (Missing) 9(A) 15:05:05 80 12 98 30.1 126/68(102) NSR (Missing) 9(A) 15:09:19 60 14 100 24.8 126/67(98) Paced (Missing) 10(A) 15:14:33 60 27 100 12 158/82(126) Paced (Missing) 10(A) 15:18:55 60 23 100 11.3 168/84(144) Paced (Missing) 10(A) Medications Time Medication Route Dose Verified Delivered Reason Notes Effecti veness by by 14:21:10 Vancomycin I.V.P.B 1 g Bertrand Buffie used for Chao Moon quality control microbiology supervisor 14:28:32 Oxygen etCO2 2 Bertrand Buffie used for Nasal l/min ChaoBrett Moon quality control microbiology supervisor cannula 14:30:15 Lidocaine added 20ml Bertrand Sanchez for local 1% to vial St Brett Vasquez MD anesthetic field x2 14:31:19 Vancomycin Topical 1 g Bertrand Francoie used for Irrigation ChaoBrett Moon quality control microbiology supervisor 14:31:28 Versed I.V. 2 mg Bertrand Francoie for ChaoBrett Moon RN sedation 14:31:33 Fentanyl I.V. 100 Bertrand Salvadorie for mcg ChaoBrett Moon RN sedation 14:31:50 0.9% NaCl I.V. kvo Bertrand Toth Per ml/hr ChaoBrett Moon RN physician 14:41:51 Fentanyl I.V. 50 mcg Bertrand Francoie for Chao Moon RN sedation 14:42:18 Oxygen simple 6l/min Bertrand Salvadorie used for mask ChaoBrett Moon quality control microbiology supervisor 14:50:25 Versed I.V. 1 mg Bertrand Salvadorie for Chao Moon RN sedation 14:51:03 Fentanyl I.V. 50 mcg Bertrand Buffie for Chao Moon RN sedation Procedure Log Time Note 13:59:15 Diagnostic Cath Status : Elective 13:59:49 Procedure Status PPM/ Gen Change/ Lead Revision/ Temp. 13:59:52 Time tracking: Regular hours (M-F 7:00 - 5:00) 13:59:56 Plan of Care:Hemodynamics will remain stable., Cardiac rhythm will remain stable., Comfort level will be maintained., Respiratory function will remain adequate., Patient/ family verbilizes understanding of procedure., Procedure tolerated without complication., Recovers from procedure without complications.. 14:00:30 Keeley Mars RT(R) sent for patient. Start room use. 14:03:10 H&P Date Dictated: 04/05/2020 Within 30 days and on chart.. 14:03:11 Pre-procedure instructions explained to patient. 14:03:12 Pre-op teaching completed and patient verbalized understanding. 14:03:14 Family in waiting room. 14:03:16 Patient NPO since Midnight. 14:03:30 Patient allergic to Other allergyPCN, CODEINE 14:03:57 Lab Result : Hemoglobin 14 g/dl 14::57 Lab Result : Hematocrit 42.8 % 14:03:57 Lab Result : eGFR NONAFRICAN 73.24260 ml/min 14:03:57 Lab Result : BUN 25 mg/dl 14:03:57 Lab Result : Creatinine 0.8 mg/dl 14:04:09 Arrival Date: 04/09/2020 12:00:00 AM 14:04:10 Admit Source: Other 14:04:15 Insurance Payor : Medicare 14:04:42 Patient Height : 73 inches 14:04:46 Patient Weight : 228.47 lbs 14:16:00 Patient received from Pre/Post Procedure Room to CCL 3 Alert and oriented. Tansferred to table in Supine position. 14:16:02 Warm blankets applied, and nedra hugger turned on for patient comfort. 14:16:03 Signed procedure consent form obtained from patient. 14:16:04 ECG and BP/O2 sat monitors applied to patient. 14:16:04 Correct patient and procedure confirmed by team. 14:21:10 Vancomycin 1 g I.V.P.B was administered by Janey Moon RN; used for procedure; Verbal order read back and verified. 14:22:29 Baseline sample Acquired. 14:22:30 Full Disclosure recording started 14:22:33 Vital chart was started 14:22:38 Is the patient allergic to Iodine/contrast media? No. 14:22:42 Was the patient premedicated? No 14:22:44 Is patient on blood thinner?No 14:22:46 Patient diabetic? N/A. 14:22:49 Patient not . Patient is over age 55. 14:22:52 ----Pre-sedation anethsthesia assessment.---- 14:22:54 Previous problem with sedation/anesthesia? No ? 14:22:55 Snore? Yes 14:22:57 Sleep apnea? Unknown 14:22:58 Deviated septum? No 14:22:59 Sticks out tongue? Yes 14:22:59 Opens mouth fully? Yes 14:23:02 Airway obstruction? Yes COPD 14:23:05 Dentures? No ? 14:23:09 Patient pain scale 0/10 ?. 14:23:13 IV patent on arrival in left antecubital with 0.9% NaCl at [facility]. 14:23:18 Lab results completed and on chart. 14:23:22 Stress Test: no; N/A ? 14:23:26 Left chest area was prepped with chlora-prep and draped in sterile fashion 14:23:27 Alarms reviewed by R. N. 14:23:28 Sharps counted by scrub and verified by R.N. 14:23:37 Use device set BRAD PPM 14:23:39 3-0 Vicryl Single Pack [id number] opened to sterile field. 14:23:39 2-0 Ticron Multipack ([id number]) opened to sterile field. 14:23:40 Cautery Tip Washing Machine Striper opened to sterile field. 14:23:40 5-0 Monocryl PS2 [id number] opened to sterile field. 14:23:41 Cautery Pushbutton Pencil opened to sterile field. 14:23:42 Mepilex Dressing ([id number]) opened to sterile field. 14:23:55 Medtronic medical detail representative SHAHZAD MARLOW present for procedure. 14:24:48 Immobilizer Large opened to sterile field. 14:25:00 Grounding pad site Left thigh. 14:25:01 Grounding pad site free from injury. 14:25:26 Baseline sample Acquired. 14:25:35 Rhythm: sinus bradycardia 14:25:39 --------ALL STOP TIME OUT------ 14:25:40 Final Timeout: patient, procedure, and site verified with staff and physician. All members of the team are in agreement. 14:25:45 Left chest site verified by team. 14:25:49 Fire Safety Assessment: A--An alcohol-based skin anteseptic being used preoperatively., C--Open oxygen or nitrous oxide is being used., D--An ESU, laser, or fiber-optic light is being used. 14:25:52 Physical assessment completed. ASA score P 2 - A patient with mild systemic disease as per Bertrand Guidry MD. 14:26:04 Sedation plan: IV Moderate Sedation Medication:Versed, Fentanyl 14:28:32 Oxygen 2 l/min etCO2 Nasal cannula was administered by Janey Moon RN; used for procedure; Verbal order read back and verified. 14:30:15 Lidocaine 1% 20ml vial x2 added to field was administered by Daniel Vasquez MD; for local anesthetic; Verbal order read back and verified. 14:31:03 Procedure started. 14:31:11 Pre sharps counted by scrub and verified by RN: Sutures: 7; Sponges: 5; Stick needles: 2; Skin needles: 2; Blade: 1; Cautery: 1 14:31:17 Lidocaine 1% was administered to left subclavicular area by Daniel Vasquez MD . 14:31:19 Vancomycin Irrigation 1 g Topical was administered by Janey Moon RN; used for procedure; Verbal order read back and verified. 14:31:28 Versed 2 mg I.V. was administered by Janey Moon RN; for sedation; Verbal order read back and verified. 14:31:33 Fentanyl 100 mcg I.V. was administered by Janey Moon RN; for sedation; Verbal order read back and verified. 14:31:50 0.9% NaCl kvo ml/hr I.V. was administered by Janey Moon RN; Per physician; Verbal order read back and verified. 14:34:24 Incision made to left subclavicular area. 14:37:19 Generator pocket made/opened. 14:37:49 Left subclavian vein accessed with 7Fr Peel Away Sheath. 14:37:50 Medtronic 4574-45 PPM Lead opened to sterile field. 14:37:50 Medtronic 4074-52 PPM Lead opened to sterile field. 14:37:58 Ventricular lead inserted and advanced. 14:38:01 Atrial lead inserted and advanced. 14:41:51 Fentanyl 50 mcg I.V. was administered by Janey Moon RN; for sedation; Verbal order read back and verified. 14:42:18 Oxygen 6l/min simple mask was administered by Janey Moon RN; used for procedure; Verbal order read back and verified. 14:45:22 Ventricular lead positioned. 14:50:21 Atrial lead positioned. 14:50:25 Versed 1 mg I.V. was administered by Janey Moon RN; for sedation; Verbal order read back and verified. 14:51:03 Fentanyl 50 mcg I.V. was administered by Janey Moon RN; for sedation; Verbal order read back and verified. 14:51:08 Ventricular lead repositioned. 14:51:11 Atrial lead repositioned. 14:58:59 Ventricular lead tested. 15:01:03 Atrial lead tested. 15:03:03 [employer] MRI PPM Dual Generator [id number] opened to sterile field. 15:03:41 Peel-a-way sheath was split and removed. 15:04:02 Atrial lead attachment was completed with 2-0 ticron. 15:04:06 Ventricular lead attachment was completed with 2-0 ticron. 15:04:17 PPM Dual was attached to lead(s) and inserted into pocket. 15:04:30 Generator was sutured in place with 2-0 vicryl. 15:05:05 Device pocket was irrigated with Vancomycin. 15:05:48 Subcutaneous closure was completed with 3-0 vicryl. 15:06:59 Skin closure was completed with 5-0 monocryl. 15:10:16 Post sharps counted by scrub and verified by RN: Sutures: 2; Sponges: 5; Stick needles: 2; Skin needles: 2; Blade: 1; Cautery: 1 15:10:59 Lt Chest incision was dressed with Mepilex dressing. 15:11:34 Fluoroscopy dose: 244.77 mGy 15:11:55 Sharps counted by scrub and verified by R.N. 15:12:00 Procedure ended.(Physican Out) 15:12:00 Post Procedure Pulses reassessed and unchanged 15:12:06 Post-procedure physical assessment completed. ASA score P 2 - A patient with mild systemic disease as per Bertrand Guidry MD. 15:12:11 Post procedure rhythm: sinus rhythm , paced 15:12:14 Estimated blood loss: 10 ml 15:12:16 Post procedure instruction explained to patient.Patient verbalizes understanding. 15:12:17 Patient needs reinforcement of post procedure teaching. 15:12:29 Fluoroscopy time 09.10 minutes. 15:12:30 Immobilizer Extra Large opened to sterile field. 15:12:34 Flurop Dose total: 244.77 15:12:43 Dose Area Product 63516 mGy/cm. 15:14:33 Procedure type changed to Cath procedure, Diagnostic procedure, PPM/ICD, PPM Dual Implant, Sedation Charges, Moderate Sedation up to 45 minutes 15:14:53 Procedure and supply charges have been captured, reviewed, submitted and are correct. 15:14:57 Procedure Complication : No complications 15:15:05 See physician's report for complete and final results. 15:15:05 Operative report dictated upon procedure completion. 15:15:07 Report given to Pre/Post Procedure Room. 15:15:11 Patient transfered to Pre/Post Procedure Room with Stretcher. 15:15:17 Full Disclosure recording stopped 15:15:17 Procedure ended. 15:16:34 End room use (Document Last) 15:16:45 End room use (Document Last) 15:19:39 Vital chart was stopped Device Usage Item Name Manufacture Quantity Catalog Hospital Part Current Minimal Lot# / Number Charge Number Stock Stock Serial# Code 2-0 Ticron Ethicon 3 [id number] 226612 [id number] 5 Multipack ([id number]) 3-0 Vicryl Ethicon 1 [id number] 412340 [id number] 5 Single Pack [id number] 5-0 Monocryl Ethicon 1 [id number] 140367 486421 445339 5 PS2 Y495G Cautery Tip Microtek 1 [id number] 596661 [id number] [id number] 5 Washing Machine Stri[employer] Cautery Microtek 1 [id number] 197820 20532 179685 5 Pushbutton [employer] Pencil Mepilex Cardinal 1 [id number] 581874 430396 [id number] 5 [facility] (017001) Immobilizer Cardinal 1 [id number] 574618 107062 388849 5 [facility] Medtronic Medtronic 1 4074-52 293596 098972 377505 5 4074-52 PPM [id number] Lead EXP : 05/31/2020 Medtronic Medtronic 1 4574-45 944442 099511 308089 5 4574-45 PPM [id number] Lead EXP : 09/24/2021 Medtronic Medtronic 1 A2DR01 546317 523480 233421 5 Advisa MRI [id number] PPM Dual EXP Generator : A2DR01 07/11/2021 Immobilizer Cardinal 1 79-77009 289136 721101 222322 5 Extra Large Health Signature Audit Tow Stage Time Signature Unsigned Intra-Procedure 04/09/2020 Denisse Watson 3:16:45 PM RT(R) Intra-Procedure 04/09/2020 Janey Moon RN 3:17:09 PM Intra-Procedure 04/09/2020 Bertrand Guidry MD 3:19:37 PM Brett MATHIAS 04/09/2020 3:28:53 PM Intra-Procedure 04/09/2020 Denisse Watson 3:30:58 PM RT(R) [facility] [address] [place] [address]
--- NOTE | ~2020-04-09 | OP ---
PATIENT NAME: ADORE LANDAVERDE MEDICAL RECORD: [id number] :43 LOCATION:D.CAT ADMISSION DATE: SURGEON: MISBAH QUACH MD DATE OF OPERATION: 04/09/2020 PROCEDURE: Lead portion of permanent pacemaker placement. SURGEON: Daniel Vasquez MD INDICATION: Sick sinus syndrome with high degree AV block. DESCRIPTION OF PROCEDURE: After left subclavian was cannulated via modified Seldinger technique via Dr. Vasquez, first, under fluoroscopic guidance, we placed the RV lead in the RV apex without difficulty. After adequate R waves and thresholds were obtained, again under fluoroscopic guidance, we placed the right atrial lead into right atrial appendage without difficulty. After adequate P waves and thresholds were obtained, the leads were attached to appropriate poles of the generator and the pocket was closed via Dr. Vasquez. IMPRESSION: Successful lead portion of permanent pacemaker placement on Adore Landaverde. ESTIMATED BLOOD LOSS: Minimal. COMPLICATIONS: None. DISPOSITION: To the floor, stable. TRANSINT:[id number] Voice Confirmation ID: [id number] DOCUMENT ID: [id number] 04/10/2020 Edited to change work type, dmm. MISBAH QUACH MD CC: [id number] DICTATION DATE: 04/09/20 1514 CLIMATE CHANGE ANALYST: 04/09/20 2153 [facility] 04/09/20 [id number] [place] [address]
--- NOTE | ~2020-04-09 | OP ---
PATIENT NAME: GRIS LEONARDO MEDICAL RECORD: [id number] :43 LOCATION:D.CAT ADMISSION DATE: SURGEON: JANESSA SALINAS MD DATE OF OPERATION: 04/09/2020 PREOPERATIVE DIAGNOSIS: Sick sinus syndrome with AV block. POSTOPERATIVE DIAGNOSIS: Sick sinus syndrome with AV block. PROCEDURE: 1. Left subclavian vein dual lead pacemaker placement. 2. Fluoroscopic interpretation. SURGEON: Janessa Salinas MD CO-SURGEON: Bertrand Crocker MD REPORT OF PROCEDURE: The patient's left chest was prepped and draped in sterile fashion. A total of 20 mL of 1% lidocaine with epinephrine was infused into the surrounding tissues. A transverse incision was made on the left superior lateral chest and a subcutaneous pouch was made over the pectoral fascia. The needles were used to cannulate the left subclavian vein and guidewires were advanced times 2. The dilator trocar devices were placed over the wires and the wires and dilators were removed. The leads were advanced through the trocars until they rested in the superior vena cava. Dr. Crocker then positioned the leads appropriately in the atrium and ventricle. Once these leads were noted to be in good position and they were sutured into place with 2-0 TiCron, the leads were affixed to the pacemaker, which was placed into the subcutaneous pouch and sutured to the pectoral fascia with a single interrupted 2-0 TiCron. We irrigated out the wound bed with antibiotic solution. Subcutaneous tissues were reapproximated with interrupted 3-0 Vicryl and the skin was closed with running subcutaneous 5-0 Monocryl. COMPLICATIONS: None. CONDITION: Stable. ANESTHESIA: Local MAC. BLOOD LOSS: Minimal. TRANSINT:[id number] Voice Confirmation ID: [id number] DOCUMENT ID: [id number] JANESSA SALINAS MD CC: [id number] DICTATION DATE: 04/09/20 1513 [employer] MERCHANDISER: 04/09/[address] [facility] 04/09/20 [address] [place] [address]
[2020-04-09] MEDS ORDERED: BETAPACE 80 MG80 MG PO (12:00)
[2020-04-09] MEDS ORDERED: ZANAFLEX4 MG PO (12:01)
[2020-04-09] MEDS ORDERED: MECLIZINE HCL12.5 MG PO (12:01)
[2020-04-09] MEDS ORDERED: PRAVASTATIN SOD10 MG PO (12:01)
[2020-04-09] MEDS ORDERED: RELAFEN500 MG PO (12:02)
[2020-04-09] MEDS ORDERED: NORVASC10 MG PO (12:02)
[2020-04-09] MEDS ORDERED: VOLTAREN100 GM TOPICAL (12:05)
[2020-04-09] MEDS ORDERED: BREO ELLIPTA 11 EACH INH (12:07)
[2020-04-09 12:27] VITALS: BP 180/77; Ht 185.4 cm; Wt 103.6 kg
[2020-04-09 12:27] LABS: HEMATOCRIT 42.8 % (36.0-48.0); MCH 30.6 pg (26.0-34.0); MCHC 32.7 g/dL (31.0-37.0); MCV 93.7 fL (80.0-100.0); MEAN PLATELET VOLUME 11.2 fL (7.4-10.4); RBC 4.57 10x6/uL (4.00-5.40); RDW 13.8 % (11.5-14.5); WBC 6.3 10x3/uL (4.8-10.8)
[2020-04-09 12:35] LABS: APTT 21.2 SECONDS (22.8-39.4); INR 0.97 (0.85-1.17); PROTIME 12.8 SECONDS (11.6-15.0)
[2020-04-09 12:37] LABS: ANION GAP 7.5 mmol/L (8-16); CALCIUM 9.6 mg/dL (8.5-10.1); CARBON DIOXIDE 33.4 mmol/L (21.0-32.0); CREATININE - SERUM 0.8 mg/dL (0.6-1.3); POTASSIUM - SERUM 4.9 mmol/L (3.5-5.1)
--- NOTE | 2020-04-09 15:30 | NUR ---
PT RECEIVED BACK TO ROOM VIA STRETCHER FROM CATH POST PACEMAKER PLACEMENT. PT AWAKE AND ALERT, DENIES PAIN OR DISCOMFORT AT THIS TIME. MEPILEX DRESSING TO L U CHEST, CDI NO BLEEDING OR SWELLING NOTED. L ARM SECURE IN SLING. IV PATENT INFUSING VIA ORDERS PER PUMP, VANC CONTINUE TO INFUSE. PT PLACED ON CARDIAC MONITORS AND O2 VIA NC AT 2L. HR PACED AT 60, BP 203/96, RR 11, SAT HARD TO MONITOR DUE TO ARTIFICIAL NAILS. CALL LIGHT IN REACH, MAUREEN AT BS.
--- NOTE | 2020-04-09 16:00 | NUR ---
PT RESTING COMFORTABLY, DENIES PAIN OR NEEDS. VSS AT PRESENT. MEPILEX DRESSING REMAINS CDI, ARM SECURE IN SLING. CALL LIGHT IN REACH, MAUREEN AT BS.
--- NOTE | 2020-04-09 16:45 | NUR ---
HR REMAINS PACED NSR. MEPILEX DRESSING REMAINS CDI NO S/S BLEEDING. PT TOLERATING PO FOOD AND FLUIDS. CALL LIGHT IN REACH
--- NOTE | 2020-04-09 17:04 | NUR ---
DISCHARGE INSTRUCTIONS REVIEWED W PT AND NIECE, THEY VERBALIZED UNDERSTANDING. IV REMOVED W CATH INTACT, MONITORS AND O2 REMOVED. PT'S NIECE SIGNED DISCHARGE PAPERS PER PT REQUEST SINCE SHE IS LEFT HANDED AND ARM IS IN SLING. PT UP TO DRESS WITH ASSIST FROM NIECE.
--- NOTE | 2020-04-09 17:19 | NUR ---
PT AMBULATED TO BR, VOIDING W/O DIFFICULITY. PT THEN DISCHARGED VIA WC TO [facility] WAITING IN PRIVATE VEHICLE. PT HAD ALL BELONGINGS AND DISCHARGE PAPERWORK
== END 2020-04-09 17:15 | disposition home or self-care (01) ==
LOC: D.CATH 11:37
PROVIDERS: ATTEND Internal Medicine Interventional Cardiology
DX: I49.5 Sick sinus syndrome (principal); I47.1 Supraventricular tachycardia; I05.9 Rheumatic mitral valve disease, unspecified; I07.9 Rheumatic tricuspid valve disease, unspecified; R01.1 Cardiac murmur, unspecified; I10 Essential (primary) hypertension; R55 Syncope and collapse